=== PATIENT | male | born 1975 | race Caucasian/White ===

== ENCOUNTER 2022-05-22 10:43 | Day surgery (SDC) | payer OTHER ==
[2022-05-22] VITALS (207 sets, daily range): BP systolic 92–149; BP diastolic 40–104
[2022-05-22 12:35] LABS: HEMATOCRIT 44.3 % (39.0-50.0); HEMOGLOBIN 14.6 g/dl (14.0-18.0); IMMATURE GRANULOCYTES 0.1 % (0.0-5.0); MEAN CELL VOLUME 88.6 fL CALC (80.0-100.0); MEAN CORPUSCULAR HGB 29.2 pG CALC (26.0-32.0); NEUT# 4.24 thou/uL (1.82-7.42); RED CELL DISTRI WIDTH 13.1 % (11.5-15.5)
[2022-05-22 12:53] LABS: ALBUMIN 3.9 g/dL (3.2-5.0); ALKALINE PHOSPHATASE 89 u/l (38-126); BILIRUBIN, TOTAL 1.1 mg/dL (0.0-1.4); BUN 24 mg/dL (9-20); BUN/CREATININE RATIO 26 (12-20 (CALC)); CARBON DIOXIDE 29 mmol/l (22-30); CHLORIDE 103 mmol/l (95-108); CREATININE 0.9 mg/dL (0.7-1.3); GFR FOR AFR.AMER. > 60 ML/MIN (>=60 (CALC)); GFR OTHER RACES > 60 ML/MIN (>=60 (CALC)); SGOT/AST 93 u/l (17-59); SODIUM 140 mmol/l (137-146); TOTAL PROTEIN 7.2 g/dL (6.3-8.2)
[2022-05-22 12:55] LABS: ANION GAP 12 (6-22 (CALC)); POTASSIUM 4.4 mmol/l (3.5-5.1)
[2022-05-22] MEDS ORDERED: CLONIDINE0.1 MG PO (13:10)
[2022-05-22] MEDS ORDERED: KLONOPIN2 MG PO (13:11)
[2022-05-22] MEDS ORDERED: NALTREXONE50 MG PO (13:11)
[2022-05-23 03:31] VITALS: BP 127/75
[2022-05-23 06:25] LABS: HEMATOCRIT 44.2 % (39.0-50.0); HEMOGLOBIN 15.1 g/dl (14.0-18.0); IMMATURE GRANULOCYTES 0.2 % (0.0-5.0); MEAN CELL VOLUME 86.7 fL CALC (80.0-100.0); MEAN CORPUSCULAR HGB 29.6 pG CALC (26.0-32.0); MEAN CORPUSCULAR HGB CONC 34.2 g/dL CAL (32.0-36.0); NEUT# 9.07 thou/uL (1.82-7.42); RED BLOOD COUNT 5.1 mill/uL (4.70-6.10); RED CELL DISTRI WIDTH 12.7 % (11.5-15.5)
[2022-05-23 07:03] LABS: ALBUMIN 3.8 g/dL (3.2-5.0); ALKALINE PHOSPHATASE 75 u/l (38-126); ANION GAP 15 (6-22 (CALC)); BILIRUBIN, TOTAL 1.4 mg/dL (0.0-1.4); BUN 16 mg/dL (9-20); BUN/CREATININE RATIO 19 (12-20 (CALC)); CARBON DIOXIDE 24 mmol/l (22-30); CHLORIDE 104 mmol/l (95-108); CREATININE 0.9 mg/dL (0.7-1.3); GFR FOR AFR.AMER. > 60 ML/MIN (>=60 (CALC)); GFR OTHER RACES > 60 ML/MIN (>=60 (CALC)); MAGNESIUM 2.2 mg/dL (1.6-2.3); POTASSIUM 3.9 mmol/l (3.5-5.1); SGOT/AST 87 u/l (17-59); SODIUM 138 mmol/l (137-146); TOTAL PROTEIN 7.1 g/dL (6.3-8.2)
[2022-05-23 07:44] VITALS: BP 115/72
[2022-05-23 18:08] VITALS: BP 123/66
[2022-05-23 22:34] VITALS: BP 128/81
[2022-05-24 03:30] VITALS: BP 130/79
[2022-05-24 07:28] VITALS: BP 127/83
[2022-05-24 09:13] LABS: HEMATOCRIT 43.6 % (39.0-50.0); HEMOGLOBIN 14.4 g/dl (14.0-18.0); IMMATURE GRANULOCYTES 0.4 % (0.0-5.0); MEAN CELL VOLUME 87.4 fL CALC (80.0-100.0); MEAN CORPUSCULAR HGB 28.9 pG CALC (26.0-32.0); NEUT# 9.7 thou/uL (1.82-7.42); RED BLOOD COUNT 4.99 mill/uL (4.70-6.10); RED CELL DISTRI WIDTH 12.9 % (11.5-15.5)
[2022-05-24 10:12] LABS: ALBUMIN 3.6 g/dL (3.2-5.0); ALKALINE PHOSPHATASE 69 u/l (38-126); ANION GAP 9 (6-22 (CALC)); BILIRUBIN, TOTAL 1.6 mg/dL (0.0-1.4); BUN 16 mg/dL (9-20); BUN/CREATININE RATIO 22 (12-20 (CALC)); CARBON DIOXIDE 23 mmol/l (22-30); CHLORIDE 108 mmol/l (95-108); CREATININE 0.7 mg/dL (0.7-1.3); GFR FOR AFR.AMER. > 60 ML/MIN (>=60 (CALC)); GFR OTHER RACES > 60 ML/MIN (>=60 (CALC)); POTASSIUM 4.1 mmol/l (3.5-5.1); SGOT/AST 46 u/l (17-59); SODIUM 136 mmol/l (137-146)
== END 2022-05-24 13:54 | disposition home or self-care (01) | DRG 897 ==
LOC: ANR 10:43 → MS2 10:44 → ANR 16:44
PROVIDERS: ATTEND Anesthesiology
DX: F11.20 Opioid dependence, uncomplicated (principal)